=== PATIENT | male | born 1955 | race Caucasian/White ===

== ENCOUNTER → 2017-07-08 | Outpatient (CLI) | payer OTHER ==
[~2017-07-08] MED LIST: ALTACE5 MG PO; ASPIR 8181 MG PO; BRILINTA90 MG PO; HYDROCHLOROTH12.5 MG PO; HYZAAR 100-12.1 EACH; LIPITOR80 MG PO; LOPRESSOR50 MG PO; NITROSTAT0.4 MG SL; PAIN RELIEF650 MG PO; PRAVACHOL20 MG; TOPROL XL25 MG
[2017-07-08 12:16] LABS: ANION GAP 9.8 (10.0-19.0); CALCIUM 9.7 mg/dL (8.5-10.5); CREATININE 1.7 mg/dL (0.6-1.3); POTASSIUM 3.8 mMol/L (3.7-5.1)
== END | disposition disaster alternative care site (69) ==
LOC: GLAB 11:31
PROVIDERS: Internal Medicine Interventional Cardiology
DX: J84.10 Pulmonary fibrosis, unspecified (principal); J98.4 Other disorders of lung
CPT/HCPCS: Q9967

== ENCOUNTER → 2017-07-16 | Outpatient (CLI) | payer OTHER ==
--- NOTE | ~2017-07-16 | PUL ---
PATIENT'S NAME: [facility] AGE: 61 Y [address] ROOM: [place] [address] LOCATION: [facility] ADMIT DATE: 07/16/2017 Pulmonary DISCHARGE DATE: FAMILY PHYSICIAN: Fritz Patton MD ATTENDING PHYSICIAN: Rito Mcdonald NAME OF PROCEDURE: Pulmonary Function Test DATE OF PROCEDURE: July 16, 2017 TECH: Axel, FROG SHAKER REASON FOR EXAM: Shortness of breath PROCEDURES PREFORMED: Spirometry with bronchodilator assessment. Measurement of maximum voluntary ventilation. Measurement of diffusing capacity. Measurement of lung volumes. RESULTS: Spirometry pre bronchodilator FVC was 3.88 L, 89% of predicted; post bronchodilator FVC was 4.06 L, 93% of predicted. Pre bronchodilator FEV1 was 2.89 L, 88% of predicted; post bronchodilator FEV1 was 2.89 L, 88% of predicted. FEV1/FVC was 75%. FEF 25-75% was 1.78 L/second, 67% of predicted. Maximum voluntary ventilation was 107 L, 82% of predicted. This data did not changed significantly following administration of bronchodilator. Measurement of lung volumes show total lung capacity was 6.1 L, 99% of predicted. Functional residual capacity was 2.8 L, 83% of predicted. Residual volume was 2.2 L, 97% of predicted. Diffusing capacity not adjusted for hemoglobin was 61% of predicted. Single breath alveolar volume was 5.3 L, which is a fair estimate total lung capacity. The flow volume loop pattern is normal. PHYSICIAN INTERPRETATION: The above data and corresponding flow volume curves are most compatible with normal lung function test, normal lung volumes, and moderate decrease in the gas transfer. Since there is isolated decrease in diffusion capacity could be secondary to smoking, anemia,pulmonary vascular diseases ; clinical correlation recommended. MD BRAIN ARAUJO/cindi PATIENT'S NAME: [facility] AGE: 61 Y [address] ROOM: [place] [address] LOCATION: [facility] ADMIT DATE: 07/16/2017 Pulmonary DISCHARGE DATE: FAMILY PHYSICIAN: Fritz Patton MD ATTENDING PHYSICIAN: Rito Mcdonald /[id number] dtt: 07/17/17 1744 , BRENDAN KAN dtd: 07/17/17 1035
[2017-07-16 09:33] LABS: BICARBONATE 23.5 mmol/L (18.0-23.0); PCO2 33 mmHg (35-45); PO2 70 mmHg (80-90)
== END | disposition disaster alternative care site (69) ==
LOC: GRTH 08:51
PROVIDERS: Internal Medicine Interventional Cardiology
DX: R06.02 Shortness of breath (principal)

== ENCOUNTER → 2017-07-29 | Outpatient (CLI) | payer OTHER ==
--- NOTE | ~2017-07-29 | PUL ---
PATIENT'S NAME: ELIAN DOMINGUEZ [facility] AGE: 61 Y [address] ROOM: [place] [id number] LOCATION: [facility] ADMIT DATE: 07/29/2017 Pulmonary DISCHARGE DATE: FAMILY PHYSICIAN: Fritz Patton MD ATTENDING PHYSICIAN: BRENDAN KAN NAME OF PROCEDURE: Six Minute Walk Test DATE OF PROCEDURE: July 29, 2017 TECH: ROSEMARIE Singletary REASON FOR EXAM: Shortness of breath. RESULTS: Total distance walked was 1550 feet. Pretest saturation was 93% which was maintained throughout activity and remained at 94%, post-test saturation was 96%. The patient did complain of shortness of breath with activity particularly with stairs. Pre test heart rate was 66 beats per minute, which went up to 114 beats per minute, and came down to 78 beats per minute during the post test period. Pretest blood pressure was 145/97, and the post test blood pressure was 160/93. PHYSICIAN INTERPRETATION: The total distance walked was 1550 feet. There was no evidence of exercise-induced desaturation. MD BRAIN ARAUJO/cindi /[id number] dtt: 08/01/17 1100 LUCIUS MEENAKSHI dtd: 07/30/17 1343
== END | disposition disaster alternative care site (69) ==
LOC: GRTH 08:35 → GCAR 11:00
DX: R06.02 Shortness of breath (principal); R06.00 Dyspnea, unspecified; R94.2 Abnormal results of pulmonary function studies
CPT/HCPCS: A9539; A9540